=== PATIENT | male | born 1970 | race Caucasian/White ===

== ENCOUNTER 2020-02-29 10:50 | Outpatient (CLI) | payer BC, OTHER ==
[2020-03-01 13:13] LABS: SARS-CoV-2 MS2 Positive; SARS-CoV-2 N Gene Negative; SARS-CoV-2 S Gene Negative; SARS-CoV-2 orf1ab Negative
== END 2020-02-29 10:51 | disposition home or self-care (01) ==
LOC: ERS 10:50 → LABBT 10:51
PROVIDERS: ATTEND Specialist
DX: Z01.812 Encounter for preprocedural laboratory examination (principal); Z11.59 Encounter for screening for other viral diseases; K31.84 Gastroparesis
CPT/HCPCS: 87635; U0003

== ENCOUNTER 2020-03-25 06:41 | Outpatient (CLI) | payer BC, OTHER ==
[2020-03-26 12:38] LABS: SARS-CoV-2 MS2 Positive; SARS-CoV-2 N Gene Negative; SARS-CoV-2 S Gene Negative; SARS-CoV-2 orf1ab Negative
== END 2020-03-25 06:42 | disposition home or self-care (01) ==
LOC: SCSLAB 06:41
PROVIDERS: ATTEND Specialist
DX: Z01.812 Encounter for preprocedural laboratory examination (principal); Z11.59 Encounter for screening for other viral diseases; E03.9 Hypothyroidism, unspecified
CPT/HCPCS: 87635; U0003

== ENCOUNTER 2020-03-30 05:45 | Outpatient (CLI) | payer BC, OTHER ==
[2020-03-30 14:32] LABS: #Basophils 0.1 thou/uL (0.0-0.2); #Eosinphils 0.1 thou/uL (0.0-0.7); #Lymphocytes 1.6 thou/uL (1.20-3.40); #Monocytes 0.5 thou/uL (0.11-0.59); #Neutrophils 3.6 thou/uL (1.40-6.50); %Basophils 1.2 % (0.0-1.0); %Eosinophils 2.4 % (0.0-10.0); %Lymphocytes 27.2 % (21.0-51.0); %Monocytes 8.3 % (0.0-10.0); %Neutrophils 60.9 % (42.0-75.0); Hemoglobin 14.6 g/dL (14.0-18.0); Mean Corpuscular HGB CONC 33.8 g/dL (32.0-36.0); Mean Platelet Volume 7.7 fL (7.4-10.4); Platelet Count 238 thou/uL (130-400); RBC Distribution Width 12.4 % (11.5-14.5); Red Blood Cell (RBC) Count 4.87 mill/uL (4.70-6.10); White Blood Cell (WBC) Count 5.9 thou/uL (4.8-10.8)
[2020-03-30 15:02] LABS: Anion Gap 11 mmol/L (10-20); BUN (Urea Nitrogen) 17 mg/dL (8.9-20.6); Calc. Creatinine Clearance 0 mL/min (70-130); Calcium 8.8 mg/dL (7.8-10.44); Carbon Dioxide 29 mmol/L (22-29); Chloride 103 mmol/L (98-107); Estimated GFR-MDRD 61; Glucose 145 mg/dL (70-105); Potassium 4.3 mmol/L (3.5-5.1); Sodium 139 mmol/L (136-145)
[2020-03-31 13:25] LABS: SARS-CoV-2 MS2 Positive; SARS-CoV-2 N Gene Negative; SARS-CoV-2 S Gene Negative; SARS-CoV-2 orf1ab Negative
== END 2020-03-30 05:46 | disposition home or self-care (01) ==
LOC: LABBT 05:45
PROVIDERS: ATTEND Surgery
DX: Z01.812 Encounter for preprocedural laboratory examination (principal); Z11.59 Encounter for screening for other viral diseases; K42.9 Umbilical hernia without obstruction or gangrene
CPT/HCPCS: 80048; 85025; 87635; U0003

== ENCOUNTER 2020-03-30 07:35 | Outpatient (CLI) | payer BC, OTHER ==
--- NOTE | 2020-03-30 09:43 | RAD ---
Air-contrast upper GI and small bowel exam HISTORY: Dysphagia. Abdomen pain. Gastroparesis. Fluoroscopy time 2.2 minutes. FINDINGS: Air contrast and single column barium evaluation shows normal anatomic appearance of the es ophagus and stomach. There is diminished peristalsis of the stomach. A 12 mm barium tablet briefly held up at the aortic arch. Delayed passage due to diminished peristalsis. No stricture evident. Refl ux of oral contrast into the esophagus. There was diminished peristalsis of the stomach. No evidence of obstruction. No ulceration or mass ev ident. Small bowel mucosal pattern is unremarkable. Terminal ileum has a normal appearance and was reached a t 30 minutes. IMPRESSION : Diminished peristalsis of the esophagus and stomach. No evidence of obstruction. Moderate amount of gastroesophageal reflux. Small bowel peristalsis appeared normal with rapid small bowel transit.
== END 2020-03-30 07:36 | disposition home or self-care (01) ==
LOC: RAD 07:35
PROVIDERS: ATTEND Specialist
DX: K31.84 Gastroparesis (principal); K21.9 Gastro-esophageal reflux disease without esophagitis; R93.3 Abnormal findings on diagnostic imaging of other parts of digestive tract
CPT/HCPCS: 74246; 80048; 85025; 87635; U0003

== ENCOUNTER 2020-04-04 09:43 | Day surgery (SDC) | payer BC ==
[2020-04-04] MEDS ORDERED: Famotidine/PF 20 mg/2ml Vial ONE (10:29)
[2020-04-04] MEDS ORDERED: Midazolam HCl 2 mg/2 ml Vial ONE (10:29)
[2020-04-04] MEDS ORDERED: Lidocaine 1% w/Epinephrine 1:100K 20 ML VIAL ONE (11:34)
[2020-04-04] MEDS ORDERED: Bupivacaine 0.25% HCL 30 ML VIAL ONE (11:34)
[2020-04-04] MEDS ORDERED: Fentanyl 100 MCG/2 ML VIAL ONE (11:45)
[2020-04-04] MEDS ORDERED: Ketorolac Tromethamine 30 MG/ML VIAL ONE (11:56)
[2020-04-04] MEDS ORDERED: Dexamethasone 20 MG/5 ML VIAL ONE (11:56)
[2020-04-04] MEDS ORDERED: Glycopyrrolate 0.2 MG/ML 5 ML SYRINGE ONE (11:56)
[2020-04-04] MEDS ORDERED: PROPOFOL 200 MG/20 ML VIAL ONE (11:56)
[2020-04-04] MEDS ORDERED: Ondansetron PF 4 MG/2 ML Vial ONE (11:56)
[2020-04-04] MEDS ORDERED: Lidocaine 1% PF 5 ML VIAL ONE (11:56)
[2020-04-04] MEDS ORDERED: Naloxone HCl 0.4 mg/ml Vial ONE (11:56)
[2020-04-04] MEDS ORDERED: Rocuronium Bromide 10 MG/ML (10ML VIAL) ONE (11:56)
[2020-04-04] MEDS ORDERED: SUGAMMADEX SODIUM 200 MG/2 ML VIAL ONE (13:05)
[2020-04-04] MEDS ORDERED: HYDROcodone/Acetaminophen 5/325 mg Tablet ONE (14:01)
--- NOTE | 2020-04-04 15:39 | OP ---
DATE OF PROCEDURE: 04/04/2020 PREOPERATIVE DIAGNOSIS: Umbilical hernia. POSTOPERATIVE DIAGNOSIS: Umbilical hernia. PROCEDURE PERFORMED: Umbilical hernia repair with mesh, Ventralex ST 4 cm. ANESTHESIA: General. ESTIMATED BLOOD LOSS: Minimal. COMPLICATIONS: None. SPECIMENS: None. FINDINGS: Umbilical hernia. DESCRIPTION OF PROCEDURE: The patient was taken to the operating room and laid supine on the operating room table. After general anesthetic was obtained, the abdomen was shaved, prepped, and draped in a sterile fashion. A curved incision was made below the umbilicus. Cautery was used to dissect down to and score the fascia. The umbilical stalk was amputated, exposing the umbilical defect. The edges of the defect were freshened. The preperitoneal space was bluntly dissected through the umbilical defect. The [address] mesh brought into the sterile field. The underlay was placed in the preperitoneal space. Its tails were laid out laterally and sewn via U-stitch of permanent braided suture to the edges of the fascia. The fascia was closed loosely over the mesh. The wound was irrigated. Local anesthetic was applied. Umbilical stalk was tacked back down using 3-0 Vicryl. Skin closed using 3-0 Vicryl, 4-0 Monocryl, and Dermabond. The patient was sent to Recovery in stable condition. All instrument counts, needle counts, and lap counts were correct. Job ID: [id number]
== END 2020-04-04 15:00 | disposition home or self-care (01) ==
LOC: SDC 09:43
PROVIDERS: ATTEND Surgery
PROC: 0WUF0JZ Supplement Abdominal Wall with Synthetic Substitute, Open Approach (ICD-10-PCS; principal; 2020-04-04)
DX: K42.9 Umbilical hernia without obstruction or gangrene (principal); J45.909 Unspecified asthma, uncomplicated; Z79.899 Other long term (current) drug therapy; Z87.891 Personal history of nicotine dependence
CPT/HCPCS: 93005; 93010; J0690; J1100; J1885; J2250; J2310; J2405; J2704; J3010; S0020; S0028

== ENCOUNTER 2023-05-06 18:30 | Outpatient (CLI) | payer BC | END 2023-05-06 18:31 | disposition home or self-care (01) | LOC: SLEEPLAB 18:30 | PROVIDERS: ATTEND Specialist | DX: G47.33 Obstructive sleep apnea (adult) (pediatric) (principal); R53.83 Other fatigue; E66.9 Obesity, unspecified | CPT/HCPCS: 95800 ==

== ENCOUNTER 2023-07-31 17:00 | Outpatient (CLI) | payer BC | END 2023-07-31 17:01 | disposition home or self-care (01) | LOC: SLEEPLAB 17:00 | PROVIDERS: ATTEND Specialist | DX: G47.33 Obstructive sleep apnea (adult) (pediatric) (principal); R53.83 Other fatigue; R09.89 Other specified symptoms and signs involving the circulatory and respiratory systems; E66.9 Obesity, unspecified; Z68.32 Body mass index [BMI] 32.0-32.9, adult; G47.10 Hypersomnia, unspecified | CPT/HCPCS: 95810 ==